=== PATIENT | female | born 1955 | race Caucasian/White ===

== ENCOUNTER 2017-06-28 16:59 | Observation (INO) | payer BC ==
[2017-06-28 17:20] VITALS: BMI 25.0
--- NOTE | 2017-06-28 17:20 | CT ---
HISTORY: Stroke protocol, right-sided weakness Study: CT brain without contrast Comparison: None Technique: Multiple axial images of the brain were obtained from the skull base to the vertex without administra tion of IV contrast. Findings: No acute intraparenchymal hemorrhage or mass can be identified. No extra-axial fluid collections are seen. No alteration in the attenuation of the brain parenchyma can be identified to suggest acute o r subacute ischemic change. Mild small vessel ischemic changes periventricular white matter. The ash tricular system is symmetric and nondilated. The extracranial structures are grossly unremarkable. IMPRESSION: 1. No acute intracranial process can be identified. Reported By:
[2017-06-28 17:34] LABS: BASOPHILS # (AUTO) 0.1 X10^3/uL (0.0-0.1); EOSINOPHILS # (AUTO) 0.1 x10^3/uL (0.0-0.2); EOSINOPHILS % (AUTO) 1.7 % (0.9-2.9); HEMATOCRIT 40.8 % (36.0-47.0); HEMOGLOBIN 14.4 g/dL (12.0-16.0); LYMPHOCYTES # (AUTO) 1.2 X10^3/uL (1.3-2.9); LYMPHOCYTES % (AUTO) 22.9 % (21.0-51.0); MEAN CORPUSCULAR HEMOGLOBIN 32.4 pg (27.0-34.0); MEAN CORPUSCULAR HGB CONC 35.3 g/dL (33.0-35.0); MEAN CORPUSCULAR VOLUME 91.8 fL (80.0-100.0); MEAN PLATELET VOLUME 8.4 fL (7.4-11.0); MONOCYTES # (AUTO) 0.3 x10^3/uL (0.3-0.8); MONOCYTES % (AUTO) 6.1 % (0.0-13.0); NEUTROPHILS # (AUTO) 3.7 x10^3/uL (2.2-4.8); NEUTROPHILS % (AUTO) 68.3 % (42.0-75.0); PLATELET COUNT 249 X10^3/uL (150.0-450.0); RED BLOOD COUNT 4.45 X10^6/uL (3.5-5.4); RED CELL DISTRIBUTION WIDTH 12.8 % (11.6-16.5); WHITE BLOOD COUNT 5.4 X10^3/uL (3.6-10.0)
[2017-06-28 17:57] LABS: BLOOD UREA NITROGEN 20 mg/dL (7-18); CALCIUM 8.9 mg/dL (8.5-10.1); CARBON DIOXIDE 29.5 mmol/L (21-32); CHLORIDE 102 mmol/L (98-107); COR NA(FOR HYPERGLY) 139 mmol/L (136-145); CREATININE 1.06 mg/dL (0.55-1.02); SODIUM 139 mmol/L (136-145); TROPONIN I < 0.02 ng/mL (0-1.5); eGFR BLACK RACES > 60 (>60); eGFR NON BLACK RACES 56 (>60)
[2017-06-28 18:01] LABS: ALANINE AMINOTRANSFERASE 32 Units/L (12-78); ALBUMIN 4.2 g/dL (3.4-5.0); ALKALINE PHOSPHATASE 62 Units/L (46-116); ASPARTATE AMINO TRANSFERASE 19 Units/L (15-37); CHOL/HDL RATIO 4.7 (0.0-5.0); CHOLESTEROL 246 mg/dL (0-200); CREATINE KINASE 89 Units/L (26-192); HDL CHOLESTEROL 52 mg/dL (40-60); TOTAL PROTEIN 7.9 g/dL (6.4-8.2); TRIGLYCERIDES 184 mg/dL (0-150)
--- NOTE | 2017-06-28 18:04 | DR.GENAD ---
HPI - PCP Primary Care Physician: [place] - Complaint/Symptoms Chief Complaint:: PT'S FAMILY STATES PT WAS WALKING AND HER RIGHT LEG GAVE OUT. AND SHE STARTED HAVING RT SIDED WEAKNESS. SYMPTOMS STARTED X 1 HOURS. - Nurses notes reviewed Nurses Notes Review: Yes - Source History Provided: Patient, Family Member - Mode of Arrival Mode of Arrival: Wheelchair - Timing Onset of Chief Complaint: 06/28/17 Came on: Gradually - Duration Duration: Constant Duration: Days - Severity Severity: Moderate PMH - PMH Past Medical History: Yes Past Medical History: Dyslipidemia Past Surgical History: Yes Surgical History: Hysterectomy, Ortho Surgery - Family History History of Family Medical Conditions: No - Social History Does any household member use tobacco: No Alcohol Use: None Do you use any recreational Drugs:: No Lives With: Family Lives Where: Home - infectious screening In the last 2 months have you had wt loss of >10#?: NO Have you had fever, night sweats or hemotysis?: No Have you traveled outside the country in the last 6 months?: No Isolation: Standard PE - Vital Signs Vitals: Temperature 98.2 F Pulse Rate [Right Radial] 76 Pulse Rate 79 Respiratory Rate 20 Blood Pressure [Right Arm] 151/94 Blood Pressure 214/90 O2 Sat by Pulse Oximetry 98 ROR - Labs Reviewed Result Diagrams: 06/28/17 17:25 06/28/17 17:25 Laboratory: WBC 5.4 X10^3/uL (3.6-10.0) 06/28/17 17:25 RBC 4.45 X10^6/uL (3.5-5.4) 06/28/17 17:25 Hgb 14.4 g/dL (12.0-16.0) 06/28/17 17:25 Hct 40.8 % (36.0-47.0) 06/28/17 17:25 MCV 91.8 fL (80.0-100.0) 06/28/17 17:25 MCH 32.4 pg (27.0-34.0) 06/28/17 17:25 MCHC 35.3 g/dL (33.0-35.0) H 06/28/17 17:25 RDW 12.8 % (11.6-16.5) 06/28/17 17:25 Plt Count 249 X10^3/uL (150.0-450.0) 06/28/17 17:25 MPV 8.4 fL (7.4-11.0) 06/28/17 17:25 Neut % (Auto) 68.3 % (42.0-75.0) 06/28/17 17:25 Lymph % (Auto) 22.9 % (21.0-51.0) 06/28/17 17:25 [place] % (Auto) 6.1 % (0.0-13.0) 06/28/17 17:25 Eos % (Auto) 1.7 % (0.9-2.9) 06/28/17 17:25 Baso % (Auto) 1.0 % (0.2-1.0) 06/28/17 17:25 Neut # (Auto) 3.7 x10^3/uL (2.2-4.8) 06/28/17 17:25 Lymph # (Auto) 1.2 X10^3/uL (1.3-2.9) L 06/28/17 17:25 [place] # (Auto) 0.3 x10^3/uL (0.3-0.8) 06/28/17 17:25 Eos # (Auto) 0.1 x10^3/uL (0.0-0.2) 06/28/17 17:25 Baso # (Auto) 0.1 X10^3/uL (0.0-0.1) 06/28/17 17:25 Absolute Nucleated RBC 0.0 /100WBC 06/28/17 17:25 INR Target Range - 06/28/17 17:25 INR 0.94 (0.8-1.3) 06/28/17 17:25 APTT 30.3 SECONDS (22.9-36.5) 06/28/17 17:25 PTT Comment - 06/28/17 17:25 Fibrinogen 280 mg/dL (239-489) 06/28/17 17:25 Sodium 139 mmol/L (136-145) 06/28/17 17:25 Corrected Sodium 139 mmol/L (136-145) 06/28/17 17:25 Potassium 4.5 mmol/L (3.5-5.1) 06/28/17 17:25 Chloride 102 mmol/L (98-107) 06/28/17 17:25 Carbon Dioxide 29.5 mmol/L (21-32) 06/28/17 17:25 BUN 20 mg/dL (7-18) H 06/28/17 17:25 Creatinine 1.06 mg/dL (0.55-1.02) H 06/28/17 17:25 Est GFR (MDRD) Af Amer > 60 (>60) 06/28/17 17:25 Est GFR (MDRD) Non-Af 56 (>60) L 06/28/17 17:25 Glucose 112 mg/dL (65-99) H 06/28/17 17:25 Calcium 8.9 mg/dL (8.5-10.1) 06/28/17 17:25 Corrected Calcium TNP 06/28/17 17:25 Total Bilirubin 0.40 mg/dL (0.2-1.0) 06/28/17 17:25 AST 19 Units/L (15-37) 06/28/17 17:25 ALT 32 Units/L (12-78) 06/28/17 17:25 Alkaline Phosphatase 62 Units/L (46-116) 06/28/17 17:25 Creatine Kinase 89 Units/L (26-192) 06/28/17 17:25 CK-MB (CK-2) < 1.0 ng/mL (0-4.0) 06/28/17 17:25 CK/CKMB % Calc 1.1 % (<4) 06/28/17 17:25 Troponin I < 0.02 ng/mL (0-1.5) 06/28/17 17:25 Total Protein 7.9 g/dL (6.4-8.2) 06/28/17 17:25 Albumin 4.2 g/dL (3.4-5.0) 06/28/17 17:25 Globulin 3.7 g/dL (2.5-4.5) 06/28/17 17:25 Albumin/Globulin Ratio 1.1 Ratio (1.1-2.1) 06/28/17 17:25 Triglycerides 184 mg/dL (0-150) H 06/28/17 17:25 Cholesterol 246 mg/dL (0-200) H 06/28/17 17:25 LDL Cholesterol, Calc 157 mg/dL (0-100) H 06/28/17 17:25 HDL Cholesterol 52 mg/dL (40-60) 06/28/17 17:25 Cholesterol/HDL Ratio 4.7 (0.0-5.0) 06/28/17 17:25 - Discharge Plan Condition: Stable - Follow ups/Referrals Follow ups/Referrals: Bello Garza [Primary Care Provider] - 3 days - Instructions
[2017-06-28 18:06] LABS: CKMB % 1.1 % (<4); CREATINE KINASE MB < 1.0 ng/mL (0-4.0)
[2017-06-28] MEDS ORDERED: PLAVIX PO ONE ×2 (18:43→18:45)
[2017-06-28] MEDS ORDERED: NORVASC TAB 5 MG PO ONE (18:43)
[2017-06-28] MEDS ORDERED: NS 1000 ML 1,000 ML IV SCH (19:00)
[2017-06-28 23:55] LABS: CKMB % 1.3 % (<4); CREATINE KINASE 77 Units/L (26-192); CREATINE KINASE MB < 1.0 ng/mL (0-4.0); TROPONIN I < 0.02 ng/mL (0-1.5)
[2017-06-29 06:11] LABS: CKMB % 1.4 % (<4); CREATINE KINASE 73 Units/L (26-192); CREATINE KINASE MB < 1.0 ng/mL (0-4.0); LIPASE 99 Units/L (73-393); TROPONIN I < 0.02 ng/mL (0-1.5)
[2017-06-29 06:18] LABS: BASOPHILS % (AUTO) 0.8 % (0.2-1.0); EOSINOPHILS # (AUTO) 0.1 x10^3/uL (0.0-0.2); EOSINOPHILS % (AUTO) 2.6 % (0.9-2.9); HEMATOCRIT 38.8 % (36.0-47.0); HEMOGLOBIN 13.9 g/dL (12.0-16.0); LYMPHOCYTES # (AUTO) 1.7 X10^3/uL (1.3-2.9); LYMPHOCYTES % (AUTO) 35.7 % (21.0-51.0); MEAN CORPUSCULAR HEMOGLOBIN 32.7 pg (27.0-34.0); MEAN CORPUSCULAR HGB CONC 35.9 g/dL (33.0-35.0); MEAN CORPUSCULAR VOLUME 91.2 fL (80.0-100.0); MEAN PLATELET VOLUME 8.8 fL (7.4-11.0); MONOCYTES # (AUTO) 0.3 x10^3/uL (0.3-0.8); MONOCYTES % (AUTO) 7.2 % (0.0-13.0); NEUTROPHILS # (AUTO) 2.5 x10^3/uL (2.2-4.8); NEUTROPHILS % (AUTO) 53.7 % (42.0-75.0); PLATELET COUNT 235 X10^3/uL (150.0-450.0); RED BLOOD COUNT 4.25 X10^6/uL (3.5-5.4); RED CELL DISTRIBUTION WIDTH 12.9 % (11.6-16.5); WHITE BLOOD COUNT 4.6 X10^3/uL (3.6-10.0)
[2017-06-29 06:30] LABS: ALANINE AMINOTRANSFERASE 27 Units/L (12-78); ALBUMIN 3.6 g/dL (3.4-5.0); ALKALINE PHOSPHATASE 55 Units/L (46-116); ASPARTATE AMINO TRANSFERASE 17 Units/L (15-37); BLOOD UREA NITROGEN 15 mg/dL (7-18); CALCIUM 8.5 mg/dL (8.5-10.1); CHLORIDE 106 mmol/L (98-107); CREATININE 0.81 mg/dL (0.55-1.02); MAGNESIUM 1.9 mg/dL (1.7-2.9); SODIUM 141 mmol/L (136-145); TOTAL PROTEIN 7.1 g/dL (6.4-8.2); eGFR BLACK RACES > 60 (>60); eGFR NON BLACK RACES > 60 (>60)
[2017-06-29] MEDS ORDERED: TYLENOL 325 MG TAB PO PRN (07:17)
[2017-06-29] MEDS ORDERED: ASPIRIN PO SCH (09:00)
[2017-06-29 12:09] VITALS: BP 137/83
--- NOTE | 2017-07-08 08:17 | DR.CARTERS ---
Short Stay Summary - Short Stay Summary for: Short Stay Summary for Date of:: 06/29/17 - Admission Date Date of Admission: 06/28/17 - Discharge Date Discharge Date: 06/29/17 - Admission Diagnoses (1) TIA (transient ischemic attack) Status: Acute (2) Altered mental status Status: Acute - Hospital Course Hospital Course: Ms. Knox is a 61 year old patient of ours who presented to the ER complaining of right sided weakness for the past hour. Patient attempted to walk at home and reports almost falling due to right leg dragging behind her, Patient also reported weakness on right side of upper extremities as well. 98.2, 79, 18, 97% RA, 214/90. Labs were obtained. Abnormal lab values include the following: Abnormal Labs: Bun 20, GFR Non Af 56, Glucose 112, Triglycerides 184, Chol 246 , LDL Chol 246. Coagulation Fibrinogen 280,APTT 30.3, INR 0.94. EKG revealed: Rate 74 Sinus Rhythm, Left Ventricular Hypertrophy @ 17:21, EKG: Rate 67, Sinus Rhythm Left Ventricular Hypertrophy @ 22:43. Brain CT revealed no acute intracranial process identified. Patient noted to be hypertensive and has received Norvasc 5mg PO X 1, As well as Plavix 150mg PO X 1. Patient will be admitted for observation with routine neuro checks with gentle hydration with Normal Saline @ 75mls ALVINA and placed on continuous secured entrance monitor. We will obtain serial cardiac enzymes and EKGs. We will continue to monitor vital signs routinely and follow up with labs in the am. On morning rounds, patient is alert and oriented with no signs or SX distress noted. She denies chest pain or weakness this morning and reports feeling well. Her vitals this morning are 97.6-68-18-97%-130/78. She is hemodynamically stable. Cardiac enzymes and EKGs have been within normal limits. We planned for discharge. Instructions for medications and follow-up were discussed with patient and family. They both verbalized understandings. Patient was discharged home in stable condition with prescriptions for amlodipine 5mg po daily, ecotrin 325mg po daily, rosuvastatin 20mg po at bedtime, and co-q 10 400mg po daily. She has instructions to follow up in our office in one week. - Discharge Medications Discharge Medications: Diphenhydramine HCl [BENADRYL 25 MG TAB/CAP *] 25 mg PO HS PRN 06/28/17 [History ] Ibuprofen 1 tab PO DAILY PRN 06/28/17 [History] Amlodipine Besylate [NORVASC 5 MG *] 5 mg PO DAILY #30 tab 06/29/17 [Rx] Aspirin EC [ECOTRIN 325 MG *] 325 mg PO DAILY #90 tab 06/29/17 [Rx] Rosuvastatin Calcium 20 mg PO HS #30 tablet 06/29/17 [Rx] Ubidecarenone [Co Q-10] 400 mg PO DAILY #30 capsule 06/29/17 [Rx] - Discharge Plan Disposition: HOME, SELF-CARE Condition: Stable Prescriptions: Amlodipine Besylate [NORVASC 5 MG *] 5 mg PO DAILY #30 tab Aspirin EC [ECOTRIN 325 MG *] 325 mg PO DAILY #90 tab Rosuvastatin Calcium 20 mg PO HS #30 tablet Ubidecarenone [Co Q-10] 400 mg PO DAILY #30 capsule - Follow up/Referrals Follow up/Referrals: Bello Garza [Primary Care Provider] - 1 WEEK - Instructions Instructions: Amlodipine tablets, Aspirin, ASA oral tablets, Rosuvastatin Tablets, Transient Ischemic Attack, Co-Enzyme Q10 oral dosage forms Additional Instructions: Prescriptions: 1. Norvasc 5mg take 1 by mouth daily 2. Ecotrin 325mg take 1 by mouth daily 3. Crestor 20mg (Rosuvastation Calcium) take 1 by mouth at bedtime 4. Co Q-10 400mg take 2 capsules by mouth daily. Prescriptions sent to [facility] pharmacy. Continue home medications as prescribed. Foster diet. Activity as tolerated. Follow up with Dr. Garza in 1 week. If symptoms reoccur or worsen see physician immediately or return to the nearest emergency room.
== END 2017-06-29 11:45 | disposition home or self-care (01) ==
LOC: ER 17:20 → MED/SURG 18:41
PROVIDERS: ADMIT Internal Medicine; ATTEND Internal Medicine
DX: G45.8 Other transient cerebral ischemic attacks and related syndromes (principal); R41.82 Altered mental status, unspecified; E78.2 Mixed hyperlipidemia; R94.31 Abnormal electrocardiogram [ECG] [EKG]; R94.4 Abnormal results of kidney function studies
CPT/HCPCS: 36415; 70450; 80053; 80061; 82550; 82553; 83690; 83735; 84484; 85025; 85384; 85610; 85730; 93005; 94760; 96365; 99284; A4222; G0378